=== PATIENT | female | born 1980 | race Caucasian/White ===

== ENCOUNTER 2024-06-17 15:52 | Observation (INO) ==
[2024-06-17] MEDS: Prochlorperazine 5 mg/ml 2 ml VIAL (10 mg) IV ONE (17:04)
[2024-06-17] MEDS: Magnesium Sulfate 2 gm BAG 2 GM/50 ML BAG IVPB ONE (17:08)
[2024-06-17] MEDS: methylPREDNISolone SOD SUCC 125 mg 2 ML VIAL IV ONE (17:08)
[2024-06-17] MEDS: Iohexol 350 (CONTRAST) 500 ML MDV IV ONE (17:14)
[2024-06-17] MEDS ORDERED: Acetaminophen IV 1 GM/100ML 1,000 MG/100 ML BAG IV PRN (20:00)
[2024-06-17] MEDS: Ondansetron 4 mg VIAL 2 MG/ML 2 ml VIAL IV SCH (20:56)
[2024-06-17] MEDS: Metoclopramide 5 MG/ML VIAL (10 mg) IV SCH (20:56)
[2024-06-17] MEDS: Magnesium Sulfate 2 gm BAG 2 GM/50 ML BAG IVPB SCH (21:50)
[2024-06-18 07:23] LABS: Calcium 8.4 mg/dL (8.6-10.3); Creatinine, Serum 0.62 mg/dL (0.51-0.95); Potassium 4.4 mmol/L (3.5-5.0); eGFR CKD-EPI 114.7 (>60)
[2024-06-18] MEDS ORDERED: Ondansetron 4 mg VIAL 2 MG/ML 2 ml VIAL IV PRN (15:25)
[2024-06-18] MEDS: Magnesium Sulfate 2 gm BAG 2 GM/50 ML BAG IVPB ONE (16:04)
[2024-06-18] MEDS: NS 0.9% 1000 ml BAG 1,000 ML IV SCH (16:04)
[2024-06-18] MEDS: Acetaminophen IV 1 GM/100ML 1,000 MG/100 ML BAG IV SCH (17:58)
[2024-06-19] MEDS: methylPREDNISolone SOD SUCC 500 MG in NS 0.9% 100 ml BAG 100 ML IVPB ONE (11:23)
[2024-06-19] MEDS: Valproic Acid IV 500 MG in NS 0.9% 100 ml BAG 100 ML IVPB ONE (12:16)
[2024-06-19 13:14] VITALS: BP 123/85
== END 2024-06-19 15:10 | disposition short-term general hospital (02) ==
LOC: EDHOLD 15:52 → ED 15:52 → MED 06-18 03:04
PROVIDERS: ADMIT Hospitalist; ATTEND Internal Medicine